=== PATIENT | male | born 1960 | race Caucasian/White ===

== ENCOUNTER 2019-01-29 07:14 | Day surgery (SDC) | payer BC, SELFPAY ==
[2019-01-22 10:20] VITALS: BP 155/80; PULSE 65; RESP 16; TEMP 37.1; O2SAT 98; BMI 30.5
--- NOTE | 2019-01-22 10:23 | SDCEKG_ITS ---
Test Reason : Blood Pressure : / mmHG Vent. Rate : 065 BPM Atrial Rate : 065 BPM P-R Int : 184 ms QRS Dur : 098 ms QT Int : 396 ms P-R-T Axes : 042 028 026 degrees QTc Int : 411 ms Normal sinus rhythm Normal ECG Confirmed by DESTINY ALBARADO, RYAN ([id number]), purchasing expeditor NOEMI MAHMOOD ([id number]) on 01/23/2019 1:17:25 PM Referred By: Evelio Ames Confirmed By:RYAN DIXON MD
[2019-01-22 11:01] LABS: Hematocrit 47.5 % (40-54); Hemoglobin 16.3 g/dl (13.0-16.5); Mean Corp Hgb Conc 34.3 g/gl (32-36); Mean Corpuscular Hgb 30.3 pg (27.0-32.0); Mean Corpuscular Volume 88.3 fL (80-94); Platelet Count 162 K/mm3 (150-450); RBC Distribution Width CV 12.6 % (11.6-14.6); RBC Distribution Width SD 40.2 fl (35.1-43.9); Red Blood Count 5.38 M/mm3 (4.6-6.2); White Blood Count 4.6 K/mm3 (4.4-11.0)
[2019-01-22 11:02] LABS: Scan Indicated on CBC? Y/N NO
[2019-01-22 11:39] LABS: Phenytoin (Dilantin) Level 4.8 mL (10.0-20.0)
--- NOTE | 2019-01-28 15:06 | PCM.HP.BLA ---
History and Physical Date of Admission: 01/29/19 58-year-old male with BPH obstructive urinary symptoms who tried Flomax in the past was initially help with an stopped working. Presented with a very high AUA symptom score and is satisfied with his urinary stream and pattern. We did start Uroxatral which did improve his urination he now comes back for cystoscopy to evaluate the prostate prosthetic channel we talked about options of management including medications, surgery, office-based procedures. No PSA on record will have my office call the family doctor to get the most recent PSA. ALLERGIES: None MEDICATIONS: Uroxatral 10 mg tablet, extended release 24 hr 1 tablet PO Q HS Dilantin PSH: None NON- PSH: None PMH: Benign prostatic hyperplasia with lower urinary tract symptoms - 12/23/2018 Erectile dysfunction due to arterial insufficiency - 12/23/2018 Feeling of incomplete bladder emptying - 12/23/2018 Frequency of micturition Nocturia Poor urinary stream NON- PMH: Epilepsy, unsp, not intractable, without status epilepticus Immunizations: None FAMILY HISTORY: None SOCIAL HISTORY: Marital Status: Preferred Language: Maldivian; Ethnicity: Not Or ; Race: White Current Smoking Status: Patient has never smoked. Tobacco Use Assessment Completed: Used Tobacco in last 30 days? Smoking cessation counseling was provided. Uses smokeless tobacco. Social Drinker. Does not use drugs. Has not had a blood transfusion. REVIEW OF SYSTEMS: Constitutional: Patient denies fever, chills, weight loss, and weight gain. Ears, Nose, Mouth, Throat: Patient denies hearing loss, sinus infections, and sleep apnea. Cardiovascular: Patient reports chest pains. Patient denies swollen ankles, irregular heartbeat, and pacemaker/defib. Genitourinary: Patient reports frequent urination, get up at night to void, difficulty starting stream, and weak stream/scanty. Patient denies urinary retention, leakage of urine, painful urination, blood in the urine, frequent uti's, history of stones, and bedwetting. Integumentary/Skin: Patient reports rash and chronic itching. Patient denies skin cancer. Notes: Updated from previous visit 12/23/2018 with review from patient as noted above. VITAL SIGNS: 01/13/2019 08:45 AM Weight 230 lb / 104.33 kg Height 72 in / 182.88 cm BP 160/82 mmHg BMI 31.2 kg/m? - BMI Counseling was provided. PHYSICAL EXAMINATION: Scrotum: No lesions. No edema. No cysts. No warts. Epididymides: Right: no spermatocele, no masses, no cysts, no tenderness, no induration, no enlargement. Left: no spermatocele, no masses, no cysts, no tenderness, no induration, no enlargement. Testes: No tenderness, no swelling, no enlargement left testes. No tenderness, no swelling, no enlargement right testes. Normal location left testes. Normal location right testes. No mass, no cyst, no varicocele, no hydrocele left testes. No mass, no cyst, no varicocele, no hydrocele right testes. Urethral Meatus: Normal size. No lesion, no wart, no discharge, no polyp. Normal location. Penis: Circumcised, no warts, no cracks. No dorsal Peyronie's plaques, no left corporal Peyronie's plaques, no right corporal Peyronie's plaques, no scarring, no warts. No balanitis, no meatal stenosis. MULTI-SYSTEM PHYSICAL EXAMINATION: Constitutional: Well-nourished. No physical deformities. Normally developed. Good grooming. Neck: Neck symmetrical, not swollen. Normal tracheal position. Respiratory: No labored breathing, no use of accessory muscles. Cardiovascular: Normal temperature, normal extremity pulses, no swelling, no varicosities. Lymphatic: No enlargement of neck, axillae, groin. Skin: No paleness, no jaundice, no cyanosis. No lesion, no ulcer, no rash. Neurologic / Psychiatric: Oriented to time, oriented to place, oriented to person. No depression, no anxiety, no agitation. Gastrointestinal: No mass, no tenderness, no rigidity, non obese abdomen. Eyes: Normal conjunctivae. Normal eyelids. Ears, Nose, Mouth, and Throat: Left ear no scars, no lesions, no masses. Right ear no scars, no lesions, no masses. Nose no scars, no lesions, no masses. Normal hearing. Normal lips. Musculoskeletal: Normal gait and station of head and neck. PAST DATA REVIEWED: Source Of History: Patient PROCEDURES: Flexible Cystoscopy - 51228 Risks, benefits, and some of the potential complications of the procedure were discussed at length with the patient including infection, bleeding, voiding discomfort, urinary retention, fever, chills, sepsis, and others. All questions were answered. Informed consent was obtained. Antibiotic prophylaxis was given. Sterile technique and intraurethral analgesia were used. Meatus: Normal size. Normal location. Normal condition. Urethra: No strictures. External Sphincter: Normal. Verumontanum: Normal. Prostate: Obstructing. Moderate hyperplasia. Bladder Neck: Non-obstructing. Ureteral Orifices: Normal location. Normal size. Normal shape. Effluxed clear urine. Bladder: Moderate trabeculation. Normal mucosa. No stones. Notes: No urine given for UA sample ASSESSMENT: ICD-10 Details 1 : Benign prostatic hyperplasia with lower urinary tract symptoms - N40.1 2 Feeling of incomplete bladder emptying - R39.14 3 Frequency of micturition - R35.0 4 Nocturia - R35.1 PLAN: Schedule Procedure: Unspecified Date - Cystoscopy TURP - 55774 Document Letter(s): Created for Patient: Clinical Summary The risks, benefits, and some of the possible complications of the proposed procedure were discussed with the patient at length and in detail including the possibility of postoperative urinary urgency, frequency, incontinence, dysuria, hematuria, retrograde ejaculation, urinary retention, bladder neck contracture, and urethral stricture, as well as the need for a bladder biopsy, retrograde pyelograms, resection of a bladder lesion, dilation of the urethra, postoperative catheterization, placement of a ureteral stent, discovering asymptomatic prostate cancer and others. The possible need for postoperative treatments including further surgical procedures was discussed with the patient. The general risks of the operative procedure and the perioperative period were discussed with the patient at length and in detail including swelling, pain, nausea, vomiting, fever, chills, infection, wound infection, sepsis, renal failure, internal or external bleeding, intraoperative bowel, organ or vascular injuries, postoperative formation of scar tissue, the need for blood transfusions, deep venous thrombosis or blood clots, pulmonary embolus, pneumonia, respiratory failure, heart attack, stroke, he and others. All of the patient's questions were answered and he voiced an understanding of these risks, benefits and possible complications. The patient gave fully informed consent to proceed with the procedure. Notes: On cystoscopy patient was found to have significant bilateral hypertrophy significant protrusion of the prostate into the bladder with obstruction. He's doing relatively well Uroxatrol but still having significant symptoms wants that resolution of this problem does have a very thick and bladder early signs of of chronic obstruction. Other options discussed for Urolift procedure in the office her medication therapy shrink the prostate. He wants to proceed with surgery with the TURP. Will set this up at the hospital in the next few weeks.
[2019-01-29] VITALS (10 sets, daily range): BP systolic 104–122; BP diastolic 65–86; PULSE 60–73; RESP 16–18; TEMP 36.1–37; O2SAT 94–100; BMI 30.5
--- NOTE | 2019-01-29 | PROS_PTH ---
PATIENT: ABDIRAHMAN PÉREZ LOC: [facility] U#:[id number] AGE/SX: 58/M ROOM: RE01/29/[address]: Dr. Evelio Ames MD : [id number] BED: DIS: 01/30/2019 SPEC #: [id number] RECD: 01/29/19 13:55 STATUS: KAILYN REJuanis #: [id number] JANNY: 01/29/19 00:[address]: Evelio Ames DEPT: SURGICAL PATHOLOGY RECD BY: Moiz Pablo ENTERED: 01/29/19 13:55 SP TYPE: TURP OTHR DR: Dr. Billy Evans MD Tissues: Prostate, NOS Procedures: Surgery Specimen Level IV HEADER OPERATION: Cysto, TUR, prostate, [employer] PRE-OP DIAGNOSIS: Benign prostatic hyperplasia TISSUE SUBMITTED: Prostate shavings MICROSCOPIC DIAGNOSIS Prostate shavings, transurethral resection: Benign prostate tissue with glandular and stromal hyperplasia. Benign urothelial mucosa. CE:sheila 01/30/19 MICROSCOPIC DESCRIPTION Slides are reviewed. GROSS DESCRIPTION Received is one container labeled with the patient's name and designated prostate tissue. The specimen consists of multiple irregular fragments of pink-haas, rubbery, soft tissue that in aggregate weigh 18.2 gm and measure in aggregate 6 x 6 x 3 cm. Senior Quality Technician tissue is submitted in 12 cassettes. / SJ:sheila 01/29/19 TC:5 CPT: 64323
[2019-01-29] MEDS: Cefazolin 2 GM in 0.9% Normal Saline 100 ML IV (09:25)
--- NOTE | 2019-01-29 09:28 | DCINST_ITS ---
Discharge Diet: Light diet - advance as tolerated Discharge Activity: Return to Normal Activity, May Shower, May Not Shower Call your doctor if your incision/area has: Continuous Slow Oozing, Sudden Increased Bleeding, Increased Pain/ Swelling, Increased Redness, Foul Smelling Discharge, Swelling at the incision site Call your doctor if you observe: Fever of 101 or Higher, Inability to urinate, Inability to have a bowel movement Instructions: Transurethral Resection of the Prostate (TURP): Home Recovery Allergies/Adverse Reactions: Allergies No Known Allergies Allergy (Verified 01/29/19 07:32) Medications to take at Discharge Phenytoin Na [Dilantin] 200 mg PO DAILY 01/22/19 Tamsulosin HCl [Flomax] 0.4 mg PO QHS 01/22/19 Acetaminophen [Tylenol Extra Strength] 500 mg PO Q4H PRN PRN #20 tablet 01/29/19 Ciprofloxacin [Cipro] 500 mg PO BID #14 tablet 01/29/19 Ibuprofen 600 mg PO Q6H PRN PRN #20 tablet 01/29/19 Ibuprofen 600 mg PO Q6H PRN PRN 5 Days tablet 01/29/19 The following prescriptions were given: Acetaminophen [Tylenol Extra Strength] 500 mg PO Q4H PRN PRN #20 tablet PRN Reason: Pain Ibuprofen 600 mg PO Q6H PRN PRN 5 Days tablet PRN Reason: Pain Ciprofloxacin [Cipro] 500 mg PO BID #14 tablet Primary Care Physician: Billy Evans MD [Primary Care Provider] - Test Results: Test results from this visit will be discussed in further detail at your follow- up appointment, if applicable. Please Follow Up With: Evelio Ames MD When: in 2 weeks, please call to make an appointment.
--- NOTE | 2019-01-29 10:34 | PCM.OPRPT ---
Report of Operation Date of Procedure: 01/29/19 Pre-Operative Diagnosis: BPH with obstruction Post-Operative Diagnosis: The same Surgery/Procedure Performed:: Transurethral resection of the prostate Description of Surgical Findings:: Indication: 58-year-old male who has obstructive voiding symptoms with frequent urination and incomplete emptying difficulty emptying his bladder, at this point is become a significant bother and a significant impact in his daily livelihood, we have tried medical therapy with no significant improvement on cystoscopy found to have obstructive bilateral tissue small median lobe we talked about the management options and the patient elected to proceed with a transurethral resection of the prostate. He understands the very rare risk of injuring the sphincter and causing incontinence, infection, bleeding sepsis, risk of anesthesia, rare risk of scar tissue formation in the bladder neck prostate urethra and along the urethral sphincter, after reviewing all the risks of the surgery the benefits of opening his channel up and relieving obstruction he wishes to proceed with the surgery. 58-year-old male taken back to the operating room at the smooth induction of general anesthesia he was placed supine on the table and then a dorsolithotomy position, the penis and testicles are prepped and draped in usual sterile fashion. Went into the bladder with a 26 Kisw[place]ili continuous flow resectoscope was able to get in to the meatus quite easily easily go into the pendulous urethra quite easily the bulbar urethra quite easily and the sphincter quite easily there is no strictures or scar tissues along the channel, prostate was identified he had a very large bilateral hypertrophy a very large median lobe, inspected the bladder he had some mild trabeculation throughout the bladder no tumors were seen of stones left the right ureteral orifice were identified. I then first resected the median lobe using a large resection loop, we used bipolar electrocautery with the [employer] system using saline for the irrigation, I resected the median lobe or resected all the way along the 6 o'clock position all the way back to the sphincter and the verumontanum I then resected the right lobe of the prostate completely this was done by starting at the 6:[address] to the 12:[address] back to the verumontanum. Once the entire right lobe was resected completely obtain hemostasis I then went to the left lobe I resected the left lobe completely started at the 6:[address] to the 12:[address] back to the verumontanum I then very carefully resected the apical tissue and very carefully resected the roof of the prostate check back to the sphincter the sphincter was intact I then took some time to Ellik out all the chips and then obtained hemostasis throughout the prostate with electrocautery once complete hemostasis was obtained the catheter was left in place on continuous bladder irrigation the urine was nice and clear patient anesthesia was reversed he was extubated taken back to PACU in good condition. Type of Anesthesia:: General Drains: sr [address] - Admit VTE Documentation VTE Present on Admission: No VTE Mechan Device Prophylaxis: SCD's
[2019-01-29] MEDS: 0.9% Normal Saline 1,000 ML 75 ML IV (14:54)
[2019-01-29] MEDS: Cefazolin 1 GM/50 ML BAG IV (17:40)
[2019-01-29] MEDS: Docusate Sodium 100 MG Capsule PO (21:17)
[2019-01-30] MEDS: Cefazolin 1 GM/50 ML BAG IV (01:16)
[2019-01-30 02:30] VITALS: BP 112/68; PULSE 60; RESP 18; TEMP 36.9; O2SAT 96
[2019-01-30] MEDS: 0.9% Normal Saline 1,000 ML 75 ML IV (05:05)
[2019-01-30 06:41] LABS: Hematocrit 43.2 % (40-54); Hemoglobin 14.7 g/dl (13.0-16.5); Mean Corpuscular Hgb 30.7 pg (27.0-32.0); Mean Corpuscular Volume 90.2 fL (80-94); Mean Platelet Vol. 8.9 fl (6.2-12.0); Platelet Count 142 K/mm3 (150-450); RBC Distribution Width CV 12.9 % (11.6-14.6); RBC Distribution Width SD 42.3 fl (35.1-43.9); Red Blood Count 4.79 M/mm3 (4.6-6.2); White Blood Count 7.5 K/mm3 (4.4-11.0)
[2019-01-30 06:44] LABS: Scan Indicated on CBC? Y/N NO
[2019-01-30 07:03] LABS: Anion Gap 4 (5-15); BUN 12 mg/dL (7-18); BUN/Creat Ratio 10.9 RATIO (10-20); Calcium,Total 8.6 mg/dL (8.5-10.1); Chloride 108 mmol/L (98-107); EST Glomerular Filtration Rate 74 mL/min (>60); Est Glom Filt Rate - Afr Amer 89 mL/min (>60); Glucose 118 mg/dL (74-106); Potassium 4.6 mmol/L (3.5-5.1); Sodium Level 141 mmol/L (136-145)
[2019-01-30 07:50] VITALS: BP 109/73; PULSE 65; RESP 18; TEMP 36.6; O2SAT 94
[2019-01-30] MEDS: Docusate Sodium 100 MG Capsule PO (10:36)
[2019-01-30] MEDS: Pantoprazole Sodium 40 MG Tablet PO (10:36)
[2019-01-30] MEDS: oxyCODONE 5 MG Tablet PO (12:51)
[2019-01-30 14:00] VITALS: BP 124/77; PULSE 73; RESP 18; TEMP 36.4; O2SAT 97
[2019-01-30 14:40] VITALS: BP 124/77; PULSE 73; RESP 18; TEMP 36.4; O2SAT 97
== END 2019-01-30 14:45 | disposition home or self-care (01) ==
LOC: SDC 07:16 → AC 07:16 → MS2 09:00
PROVIDERS: Anesthesiology; Family Provider Family Medicine; PCP Family Medicine; Referring Provider Urology; Visit Provider Urology
PROC: (CPT 52601; principal; 2019-01-29 09:20)
DX: N40.1 Benign prostatic hyperplasia with lower urinary tract symptoms (principal); N13.8 Other obstructive and reflux uropathy; R35.0 Frequency of micturition; R39.14 Feeling of incomplete bladder emptying; R35.1 Nocturia; R39.12 Poor urinary stream; N32.89 Other specified disorders of bladder; G40.909 Epilepsy, unspecified, not intractable, without status epilepticus; E78.00 Pure hypercholesterolemia, unspecified; F17.200 Nicotine dependence, unspecified, uncomplicated; Z79.899 Other long term (current) drug therapy
CPT/HCPCS: 52601; 36415; 80048; 80185; 85027; 85730; 88305; 93005; J7030; J7120; J2405

== ENCOUNTER → 2025-03-10 | Outpatient (CLI) | payer OTHER, SELFPAY ==
--- NOTE | 2025-03-10 09:51 | RAD_ITS ---
EXAM: Single and double contrast esophagram. CLINICAL HISTORY: Dysphagia. COMPARISON: None. TECHNIQUE: Single and double contrast esophagram. Fluoroscopy time 162 seconds. Dose: 51 mGy-cm. FINDINGS: Intermittent mild distal esophageal spasm is noted. No area of esophageal stenosis is seen. A very small sliding-type hiatal hernia was noted. During the time of imaging, gastroesophageal reflux was not visualized. Limited imaging of the stomach and duodenum demonstrates no abnormality. Prompt passage of a 13 mm barium tablet into the stomach was seen. RAD/Esophagus Single Contrast IMPRESSION: 1. Very small sliding-type hiatal hernia. 2. Intermittent mild distal esophageal spasm. Reading Location: [place] [id number]
== END | disposition home or self-care (01) ==
PROVIDERS: PCP Family Medicine; Referring Provider Internal Medicine Gastroenterology; Visit Provider Internal Medicine Gastroenterology
DX: R13.10 Dysphagia, unspecified (principal)
CPT/HCPCS: 74220